=== PATIENT | male | born 1990 | race Two or more races ===

== ENCOUNTER 2017-12-19 15:28 | Outpatient (CLI) | payer OTHER | END 2017-12-19 16:07 | disposition home or self-care (01) | LOC: RAD 501 15:28 | DX: S93.302A Unspecified subluxation of left foot, initial encounter (principal); S90.32XA Contusion of left foot, initial encounter ==

== ENCOUNTER → 2017-12-22 | Outpatient (CLI) | payer OTHER | END | disposition home or self-care (01) | LOC: TOM 10:34 | DX: M19.072 Primary osteoarthritis, left ankle and foot (principal) ==